=== PATIENT | female | born 1955 | race Caucasian/White ===

== ENCOUNTER 2019-04-01 08:51 | Observation (INO) ==
[2019-04-01] MEDS ORDERED: CeFAZolin Syr 2,000MG/20 ML 2,000 MG/20 ML SYRINGE IVPB ONE (09:15)
[2019-04-01] MEDS ORDERED: Ringers Solution, Lactated 1,000 ML IVC SCH (09:15)
[2019-04-01] MEDS ORDERED: Ondansetron 4 MG/2 ML VIAL IVP ONE (10:03)
[2019-04-01] MEDS ORDERED: *HR* OxyCODONE Immed Rel 5 MG TABLET PO PRN (10:03)
[2019-04-01] MEDS ORDERED: Dexamethasone 4 MG/ML VIAL ONE (11:32)
[2019-04-01] MEDS ORDERED: *HR* FentaNYL (PF) 100 MCG/2 ML VIAL ONE ×2 (11:32→16:33)
[2019-04-01] MEDS ORDERED: *HR* Midazolam HCl 2 MG/2 ML VIAL ONE (11:32)
[2019-04-01] MEDS ORDERED: Ondansetron 4 MG/2 ML VIAL ONE ×2 (11:32→16:22)
[2019-04-01] MEDS ORDERED: Lidocaine -MPF 2% 2 ML VIAL ONE ×2 (11:32→16:22)
[2019-04-01] MEDS ORDERED: *HR* Propofol 200 MG/20 ML VIAL IVP ONE ×2 (11:33→16:25)
[2019-04-01] MEDS ORDERED: Bupivacaine/EPI 1:200k 0.5%PF 30 ML VIAL ONE (12:06)
[2019-04-01] MEDS ORDERED: EPHEDrine 50 MG/ML VIAL ONE (12:58)
[2019-04-01] MEDS: *HR* HYDROmorphone (PF) 1 MG/ML SYRINGE IVP PRN ×4 (13:48→14:03)
[2019-04-01] MEDS ORDERED: *HR* OxyCODONE Immed Rel 5 MG TABLET PO ONE (14:50)
[2019-04-01] MEDS ORDERED: *HR* Succinylcholine 200 MG/10 ML VIAL IVP ONE (16:22)
[2019-04-01] MEDS ORDERED: Lidocaine 1% 20 ML MDV ONE (17:00)
[2019-04-01] MEDS ORDERED: *HR* Promethazine 25 MG/ML VIAL IVP PRN (19:27)
[2019-04-01] MEDS ORDERED: Ondansetron 4 MG/2 ML VIAL IVP PRN (19:27)
[2019-04-01] MEDS: 0.9 % Sodium Chloride 1,000 ML IVC SCH (20:25)
[2019-04-02] MEDS ORDERED: Pantoprazole 40 MG VIAL IVP SCH (09:00)
[2019-04-02] MEDS: 0.9 % Sodium Chloride 1,000 ML IVC SCH (09:29)
[2019-04-02 10:15] VITALS: BP 116/73
[2019-04-02 11:37] LABS: Basophils % 0.2 %; Eosinophils % 0.2 %; Hematocrit 41.2 % (35.3-44.9); Hemoglobin 13.3 g/dL (11.5-15.4); Immature Granulocytes % 0.3 % (0-4); Lymphocytes # 2.3 K/mcL (0.6-4.6); Lymphocytes % 20.8 %; Mean Corpuscular HGB Conc 32.3 g/dL (31.6-35.5); Mean Corpuscular Hemoglobin 28.5 pg (28.0-33.3); Mean Corpuscular Volume 88.2 fL (83.0-100.0); Mean Platelet Volume 9.4 fL (9.4-12.4); Monocytes # 0.8 K/mcL (0.0-1.3); Neutrophils # 7.8 K/mcL (1.6-8.9); Platelet Count 284 K/mcL (140-400); Red Blood Count 4.67 M/mcL (3.82-4.97); Red Cell Distribution Width 13.7 % (11.5-14.5); Segmented Neutrophils % 71.5 %; White Blood Count 10.9 K/mcL (4.3-11.1)
[2019-04-02 11:43] LABS: BUN/Creatinine Ratio 13 (6-26); Blood Urea Nitrogen 12 mg/dL (8-23); Calcium 8.5 mg/dL (8.6-10.3); Carbon Dioxide 23 mEq/L (23-29); Chloride 107 mEq/L (98-107); Glucose 155 mg/dL (70-105); Osmolality,Calculated 291 (280-300); Potassium 3.7 mEq/L (3.5-5.1); Sodium 139 mEq/L (136-145); eGFR For African Americans > 60 (> 60); eGFR For Non-African Americans > 60 (> 60)
== END 2019-04-02 11:07 | disposition home or self-care (01) ==
LOC: 3ANU 08:51 → SAMDAY 08:51 → 3ANU 18:41
PROVIDERS: ADMIT Surgery; ATTEND Surgery